=== PATIENT | male | born 1985 ===

== ENCOUNTER 2016-11-09 09:58 | Emergency (ER) | payer MEDICAID ==
[2016-11-09 10:04] VITALS: BMI 34.8
[2016-11-09 10:06] VITALS: BP 131/67; PULSE 71; RESP 19; TEMP 98.2; O2SAT 98
[2016-11-09] MEDS ORDERED: Lidocaine 5% Patch TD STA (10:25)
--- NOTE | 2016-11-09 10:26 | ED PDOC ---
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 Presents now with continuing pain to right lower back worse with movement or sitting. Denies fever , flank pain, urinary symptoms, or weakness, numbness or incontinence. Denies radiation of pain to legs. Past Medical History Reviewed: Historical Data, Nursing Documentation, Vital Signs Vital Signs: Last Vital Signs Temp 98.2 F 11/09/16 10:04 Pulse 71 11/09/16 10:04 Resp 19 11/09/16 10:04 BP 131/67 11/09/16 10:04 Pulse Ox 98 11/09/16 10:04 - Medical History PMH: Back Problems - Surgical History Surgical History: No Surg Hx - Family History Family History: States: Unknown Family Hx - Social History Drugs: Denies - Immunization History Hx Tetanus Toxoid Vaccination: No Hx Influenza Vaccination: No Hx Pneumococcal Vaccination: No - Home Medications Home Medications: Ambulatory Orders Medication Instructions Recorded Cyclobenzaprine [Cyclobenzaprine 10 mg PO Q8 PRN #9 tab 11/09/16 HCl] Lidocaine 5% [Lidoderm] 1 ea TD DAILY PRN #5 patch 11/09/16 Naproxen [Naprosyn] 500 mg PO BID PRN #14 tablet 11/09/16 traMADol [Ultram] 50 mg PO DAILY 11/09/16 - Allergies Allergies/Adverse Reactions: Allergies Allergy/AdvReac Type Severity Reaction Status Date / Time No Known Allergies Allergy Verified 11/09/16 10:15 Review of Systems ROS Statement: Except As Marked, All Systems Reviewed And Found Negative Constitutional: Negative for: Fever Genitourinary Male: Negative for: Dysuria, Frequency, Incontinence, Hematuria Neurological: Negative for: Weakness, Numbness Physical Exam - Reviewed Nursing Documentation Reviewed: Yes Vital Signs Reviewed: Yes - Physical Exam Appears: Positive for: Well, Non-toxic, No Acute Distress Head Exam: Positive for: ATRAUMATIC, NORMAL INSPECTION, NORMOCEPHALIC Skin: Positive for: Warm, Dry Eye Exam: Positive for: EOMI, PERRL Back: Positive for: Other (lumbar tenderness paraspinally) Extremity: Positive for: Normal ROM Neurologic/Psych: Positive for: Gait (stable), Other (neurologically intact) - ECG O2 Sat by Pulse Oximetry: 98 (RA) Pulse Ox Interpretation: Normal Medical Decision Making Medical Decision Makin: XR Lumbar Spine, Lidoderm, Toradol ordered. 1231 XR Lumbar Spine Impression; no acute fracture, spondylosis, or spondyloisthesis 1231 on reassessment patient is feeling better. requests to be discharged. Stable for discharge. Disposition - Clinical Impression Clinical Impression: Back disorder - Patient ED Disposition Is Patient to be Admitted: No Counseled Patient/Family Regarding: Studies Performed, Diagnosis, Need For Followup, Rx Given - Disposition Referrals: Concepcion Potter MD [Staff Provider] - Disposition: Routine/Home Disposition Time: 12:31 Condition: STABLE Additional Instructions: Followup with specialist for further testing . Take medications as directed. Use patch to back for 10 hours daily (max)- take off at night. Prescriptions: Cyclobenzaprine [Cyclobenzaprine HCl] 10 mg PO Q8 PRN #9 tab PRN Reason: Muscle Spasm Lidocaine 5% [Lidoderm] 1 ea TD DAILY PRN #5 patch PRN Reason: Pain, Moderate (4-7) Naproxen [Naprosyn] 500 mg PO BID PRN #14 tablet PRN Reason: Pain, Moderate (4-7) Instructions: Acute Low Back Pain (ED) Additional Comments - Additional Comments Additional Comments: Scribe Attestation: Documented by Cody Humphrey acting as a scribe for Enoch Montelongo DO. Provider Scribe Attestation: All medical record entries made by the Scribe were at my direction and personally dictated by me. I have reviewed the chart and agree that the record accurately reflects my personal performance of the history, physical exam, medical decision making, and the department course for this patient. I have also personally directed, reviewed, and agree with the discharge instructions and disposition.
--- NOTE | 2016-11-09 11:55 | RAD ---
PROCEDURE: Radiographs of the Lumbar Spine. HISTORY: Low back pain COMPARISON: No prior. FINDINGS: BONES: There is normal alignment of the lumbar vertebral bodies. Lumbar lordosis is maintained. Vertebral bodies are normal in height. Bone mineralization is normal. There is no acute fracture or spondylolysis. DISC SPACES: The disc heights are maintained. OTHER FINDINGS: There are no pathologic soft tissue calcifications. Both sacroiliac joints are normal. IMPRESSION: No acute fracture, spondylolysis or spondylolisthesis.
== END 2016-11-09 12:41 | disposition home or self-care (01) ==
LOC: H.ER 09:58
DX: M54.9 Dorsalgia, unspecified (principal)

== ENCOUNTER 2017-03-06 15:42 | Emergency (ER) | payer MEDICAID, OTHER ==
[2017-03-06 15:42] VITALS: BMI 34.8
[2017-03-06 15:50] VITALS: BP 129/79; PULSE 87; RESP 16; TEMP 99; O2SAT 98
--- NOTE | 2017-03-06 16:38 | ED PDOC ---
HPI: Back Time Seen by Provider: 03/06/17 15:51 Chief Complaint (Nursing): Back Pain Chief Complaint (Provider): Back pain History Per: Patient History/Exam Limitations: no limitations Onset/Duration Of Symptoms: Mins (just prior to arrival) Current Symptoms Are (Timing): Still Present Severity: Moderate Previous Symptoms: Back Pain Associated Symptoms: None Additional Complaint(s): 31 year old male with a pertinent medical history of back problems presents to the ED with complaints of back pain that started just prior to arrival. He reports that he was cleaning his bathtub (bending down), and when he started to stand up straight, the back pain developed. He reports that he has a history of back problems, but has never seen a specialist for it because he usually goes to his PMD for it. His PMD usually gives him tramadol for the pain, but he ran out so he could not take any today. He denies any blunt trauma, numbness, tingling, abdominal pain, nausea, vomiting, dysuria, hematuria, incontinence, and radiation of pain. PMD: Quinten Tamez MD Past Medical History Reviewed: Historical Data, Nursing Documentation, Vital Signs Vital Signs: Last Vital Signs Temp 99 F 03/06/17 15:48 Pulse 87 03/06/17 15:48 Resp 16 03/06/17 15:48 BP 129/79 03/06/17 15:48 Pulse Ox 98 03/06/17 15:48 - Medical History PMH: Back Problems - Surgical History Surgical History: No Surg Hx - Family History Family History: States: Unknown Family Hx - Social History Current smoker - smoking cessation education provided: No Alcohol: None Drugs: Denies - Immunization History Hx Tetanus Toxoid Vaccination: No Hx Influenza Vaccination: No Hx Pneumococcal Vaccination: No - Home Medications Home Medications: Ambulatory Orders Medication Instructions Recorded Cyclobenzaprine [Cyclobenzaprine 10 mg PO Q8 PRN #9 tab 11/09/16 HCl] Lidocaine 5% [Lidoderm] 1 ea TD DAILY PRN #5 patch 11/09/16 Naproxen [Naprosyn] 500 mg PO BID PRN #14 tablet 11/09/16 traMADol [Ultram] 50 mg PO DAILY 11/09/16 Meloxicam [Mobic] 1 - 2 tab PO DAILY PRN #30 tab 03/06/17 Methocarbamol [Robaxin] 500 mg PO Q8 PRN #20 tab 03/06/17 - Allergies Allergies/Adverse Reactions: Allergies Allergy/AdvReac Type Severity Reaction Status Date / Time No Known Allergies Allergy Verified 11/09/16 10:15 Review of Systems Gastrointestinal: Negative for: Nausea, Vomiting, Abdominal Pain Genitourinary Male: Negative for: Dysuria, Incontinence, Hematuria Musculoskeletal: Positive for: Back Pain Neurological: Negative for: Numbness (no tingling) Physical Exam - Reviewed Nursing Documentation Reviewed: Yes Vital Signs Reviewed: Yes - Physical Exam Appears: Positive for: Well, Non-toxic, In Acute Distress (minial painful distress) Head Exam: Positive for: ATRAUMATIC, NORMOCEPHALIC Skin: Positive for: Normal Color, Warm, Dry. Negative for: Rash Cardiovascular/Chest: Positive for: Regular Rate, Rhythm, Chest Non Tender Respiratory: Positive for: Normal Breath Sounds. Negative for: Respiratory Distress Gastrointestinal/Abdominal: Positive for: Normal Exam, Soft. Negative for: Tenderness Back: Positive for: Normal Inspection, Muscle Spasm (right sided). Negative for : L CVA Tenderness, Vertebral Tenderness Neurologic/Psych: Positive for: Alert, Oriented (3x) - ECG O2 Sat by Pulse Oximetry: 98 (RA) Pulse Ox Interpretation: Normal Medical Decision Making Medical Decision Makin:51 Initial impression: 31 year old male with back pain. Initial plan: * flexeril 10mg PO * toradol 15mg IM Scribe Attestation: Documented by Siobhan Simms, acting as a scribe for Mikel Schultz Provider Scribe Attestation: All medical record entries made by the Scribe were at my direction and personally dictated by me. I have reviewed the chart and agree that the record accurately reflects my personal performance of the history, physical exam, medical decision making, and the department course for this patient. I have also personally directed, reviewed, and agree with the discharge instructions and disposition. Disposition - Clinical Impression Clinical Impression: Low back pain - Patient ED Disposition Is Patient to be Admitted: No - Disposition Referrals: [facility] [place] [Outside] Disposition: Routine/Home Disposition Time: 15:30 Condition: STABLE Prescriptions: Meloxicam [Mobic] 1 - 2 tab PO DAILY PRN #30 tab PRN Reason: Pain Methocarbamol [Robaxin] 500 mg PO Q8 PRN #20 tab PRN Reason: Muscle Spasm Instructions: Acute Low Back Pain (ED) Forms: [facility] ([place]), [facility] ED School/Work Excuse Print Language: PERUVIAN
== END 2017-03-06 17:25 | disposition home or self-care (01) ==
LOC: H.ER 15:42
DX: M54.5 Low back pain (principal)

== ENCOUNTER 2017-09-01 10:18 | Emergency (ER) | payer OTHER ==
[2017-09-01 10:27] VITALS: BMI 38.3
[2017-09-01 10:28] VITALS: BP 136/80; RESP 18; TEMP 97.8
[2017-09-01] MEDS ORDERED: Sodium Chloride 0.9% 1,000 ML IV STA (10:38)
[2017-09-01 11:22] LABS: BASO # 0.1 K/uL (0.0-0.2); BASO % 0.9 % (0.0-2.0); EOS # 0.1 K/uL (0.0-0.7); EOS % 0.8 % (0.0-4.0); HEMOGLOBIN 15.8 g/dL (12.0-18.0); LYMPH # 3.2 K/uL (1.0-4.3); MEAN CELL VOLUME 85.5 fl (80.0-94.0); MEAN CORPUSCULAR HEMOGLOBIN 29.1 pg (27.0-31.0); MEAN CORPUSCULAR HGB CONC 34.1 g/dL (33.0-37.0); MEAN PLATELET VOLUME 7.8 fl (7.2-11.7); MONO # 0.8 K/uL (0.0-0.8); NEUT # 4.7 K/uL (1.8-7.0); NEUT % 53.3 % (50.0-75.0); RBC 5.41 Mil/uL (4.40-5.90); RED CELL DISTRIBUTION WIDTH 13.6 % (11.5-14.5); WHITE BLOOD COUNT 8.8 K/uL (4.8-10.8)
[2017-09-01 11:33] LABS: ALB/GLOB RATIO 1.1 (1.0-2.1); ALT/SGPT 58 U/L (21-72); AST/SGOT 38 U/L (17-59); BLOOD UREA NITROGEN 12 mg/dl (9-20); CALCIUM 9.2 mg/dL (8.4-10.2); GFR AFRICAN-AMERICAN > 60; GFR NON-AFRICAN AMERICAN > 60
--- NOTE | 2017-09-01 11:41 | ED PDOC ---
HPI: General Adult Time Seen by Provider: 09/01/17 10:38 Chief Complaint (Nursing): Shortness Of Breath Chief Complaint (Provider): shortness of breathing, nausea History Per: Patient History/Exam Limitations: no limitations Current Symptoms Are (Timing): Better Severity: Mild Additional Complaint(s): 32yo male presents c/o SOB and nausea after night of drinking last night. Denies fever, cough, chest pain or syncope. Denies leg edema, history of blood clots or hemoptysis. Past Medical History Reviewed: Historical Data, Nursing Documentation, Vital Signs Vital Signs: Last Vital Signs Temp 97.8 F 09/01/17 10:27 Pulse 90 09/01/17 18:58 Resp 18 09/01/17 10:27 BP 136/80 09/01/17 10:27 Pulse Ox 99 09/01/17 18:58 - Medical History PMH: Back Problems - Surgical History Other surgeries: foot - Family History Family History: States: Unknown Family Hx - Living Arrangements Living Arrangements: With Family - Social History Current smoker - smoking cessation education provided: No - Immunization History Hx Tetanus Toxoid Vaccination: No Hx Influenza Vaccination: No Hx Pneumococcal Vaccination: No - Home Medications Home Medications: Ambulatory Orders Medication Instructions Recorded Cyclobenzaprine [Cyclobenzaprine 10 mg PO Q8 PRN #9 tab 11/09/16 HCl] Lidocaine 5% [Lidoderm] 1 ea TD DAILY PRN #5 patch 11/09/16 Naproxen [Naprosyn] 500 mg PO BID PRN #14 tablet 11/09/16 traMADol [Ultram] 50 mg PO DAILY 11/09/16 Meloxicam [Mobic] 1 - 2 tab PO DAILY PRN #30 tab 03/06/17 Methocarbamol [Robaxin] 500 mg PO Q8 PRN #20 tab 03/06/17 Albuterol HFA [Ventolin HFA 90 1 - 2 puff IH Q4 PRN #1 inhaler 09/01/17 mcg/actuation (8 g)] - Allergies Allergies/Adverse Reactions: Allergies Allergy/AdvReac Type Severity Reaction Status Date / Time No Known Allergies Allergy Verified 11/09/16 10:15 Review of Systems ROS Statement: Except As Marked, All Systems Reviewed And Found Negative Constitutional: Negative for: Fever, Chills Cardiovascular: Negative for: Chest Pain Respiratory: Positive for: Shortness of Breath Gastrointestinal: Positive for: Nausea, Vomiting. Negative for: Abdominal Pain Genitourinary Male: Negative for: Dysuria - Laboratory Results Result Diagrams: 09/01/17 11:13 09/01/17 11:13 - ECG O2 Sat by Pulse Oximetry: 98 Medical Decision Making Medical Decision Making: labs reviewed and clinically unremarkable mild elev etoh DDimer neg BNP normal Duoneb given w improvement of symptoms and peak flow DC from ED w HFA albuterol, followup PMD No signs resp failure, cardiac arrhythmia, CHF, normal CXR and improved symptoms prior to discharge. Disposition - Clinical Impression Clinical Impression: Dyspnea, Alcohol use - Patient ED Disposition Is Patient to be Admitted: No Counseled Patient/Family Regarding: Studies Performed, Diagnosis, Need For Followup, Rx Given - Disposition Disposition: Routine/Home Disposition Time: 15:01 Condition: STABLE Prescriptions: Albuterol HFA [Ventolin HFA 90 mcg/actuation (8 g)] 1 - 2 puff IH Q4 PRN #1 inhaler PRN Reason: Shortness Of Breath Instructions: At-Risk Alcohol Use (ED), Dyspnea (ED) Forms: [employer] ([place]), [facility] ED School/Work Excuse
[2017-09-01 13:15] LABS: INR 1.2 (0.9-1.2); PARTIAL THROMBOPLASTIN TIME 29.5 Seconds (25.6-37.1)
--- NOTE | 2017-09-01 15:12 | RAD ---
HISTORY: Shortness of breath. COMPARISON: 12/14/2012 FINDINGS: LUNGS: No active pulmonary disease. PLEURA: No significant pleural effusion identified, no pneumothorax apparent. CARDIOVASCULAR: No radiographic findings to suggest acute or significant cardiovascular disease. OSSEOUS STRUCTURES: No significant abnormalities. VISUALIZED UPPER ABDOMEN: Normal. OTHER FINDINGS: None. IMPRESSION: No active disease. No significant interval change compared to the prior examination(s).
[2017-09-01] MEDS ORDERED: Albuterol-Ipratrop 3 mg / 0.5 (3 ml) UD INH STA (15:38)
[2017-09-01] MEDS ORDERED: Albuterol-Ipratrop 3 mg / 0.5 (3 ml) UD ONE (15:42)
[2017-09-01 19:00] VITALS: PULSE 90
--- NOTE | 2017-09-02 18:24 | CARD ---
APPROVED REPORT EKG Measurement Heart [id number] <Conclusion> Atrial fibrillation with rapid ventricular response Septal infarct, age undetermined Abnormal ECG
[2017-09-05 13:31] VITALS: O2SAT 98
== END 2017-09-01 16:30 | disposition home or self-care (01) ==
LOC: H.ER 10:18
DX: R06.00 Dyspnea, unspecified (principal); I48.91 Unspecified atrial fibrillation
CPT/HCPCS: 71045; 80053; 80320; 84484; 85025; 85378; 85610; 85730; 93005; 94640; 96374; 99283; J2060; J7040